=== PATIENT | female | born 1980 | race Caucasian/White ===

== ENCOUNTER → 2020-09-10 | Outpatient (CLI) | payer MEDICAID ==
[~2020-09-10] MED LIST: ACET160E38 PO; DIPH25CA83 PO; IBUP-2029 PO; METO-539 PO
== END | disposition home or self-care (01) ==
LOC: LAB 10:06
PROVIDERS: ATTEND Orthopaedic Surgery
DX: Z01.812 Encounter for preprocedural laboratory examination (principal); Z20.828 Contact with and (suspected) exposure to other viral communicable diseases; M24.662 Ankylosis, left knee
CPT/HCPCS: 87426

== ENCOUNTER 2020-09-12 05:15 | Day surgery (SDC) | payer MEDICAID ==
[~2020-09-12] VITALS: Ht 162.6 cm; Wt 77.1 kg
[~2020-09-12 05:15] MED LIST changes: -ACET160E38 PO; -DIPH25CA83 PO
[2020-09-12 06:41] LABS: CLARITY URINE CLEAR (CLEAR); COLOR URINE YELLOW (YELLOW); KETONES URINE NEGATIVE (NEGATIVE); LEUKOCYTE ESTERASE URINE NEGATIVE (NEGATIVE); NITRITE URINE NEGATIVE (NEGATIVE); OCCULT BLOOD URINE NEGATIVE (NEGATIVE); PROTEIN URINE NEGATIVE (NEGATIVE); SPECIFIC GRAVITY URINE 1.026 (1.005-1.030); UROBILINOGEN URINE 0.2 E.U./dL (0.2-1.0)
[2020-09-12] MEDS ORDERED: DIPH25CA83 PO (06:43)
[2020-09-12] MEDS ORDERED: ACET160E38 PO (06:43)
[2020-09-12 06:44] LABS: UCG SCREEN NEGATIVE
[2020-09-12] MEDS ORDERED: LACTATED RINGERS 1,000 ML IV SCH (07:00)
[2020-09-12] MEDS ORDERED: MORPHINE SULFATE/PF 1MG/ML 10ML AMP ONE (07:10)
[2020-09-12] MEDS ORDERED: SKIN ADHESIVE 0.7 GM EA TOP ONE (07:10)
[2020-09-12] MEDS ORDERED: LIDOCAINE HCL/EPINEPHRINE 1%-EPI 1:100,000 20 ML VIAL ONE ×2 (07:10→09:06)
[2020-09-12] MEDS ORDERED: EPINEPHRINE 1:1000 1 MG/ML AMP ONE (07:10)
[2020-09-12] MEDS ORDERED: MORPHINE SULFATE 2 MG/ML CPJ (NOT FOR IM USE) IV PRN (07:30)
[2020-09-12] MEDS ORDERED: SODIUM CHLORIDE 0.9% 1,000 ML IV ONE (07:30)
[2020-09-12] MEDS ORDERED: HYDROMORPHONE HCL/PF 2MG/ML CPJ IV PRN (07:30)
[2020-09-12] MEDS ORDERED: MEPERIDINE HCL/PF 25MG/ML CPJ IV PRN ×2 (07:30)
[2020-09-12] MEDS ORDERED: HYDROCODONE/ACETAMINOPHEN 10/325MG TABLET PO PRN (07:45)
[2020-09-12] MEDS ORDERED: ROPIVACAINE HCL 10MG/ML 20 ML VIAL EPI ONE (07:50)
[2020-09-12] MEDS ORDERED: SUCCINYLCHOLINE CHLORIDE 200MG/10ML IV ONE (07:54)
[2020-09-12] MEDS ORDERED: FENTANYL CITRATE/PF 50MCG/ML 2ML VIAL ONE (07:54)
[2020-09-12] MEDS ORDERED: MIDAZOLAM HCL 2 MG/2 ML VIAL ONE (07:54)
[2020-09-12] MEDS ORDERED: GLYCOPYRROLATE 0.2 MG/ML 2ML VIAL ONE (07:54)
[2020-09-12] MEDS ORDERED: PROPOFOL 200MG/20ML VIAL IV ONE (07:54)
[2020-09-12] MEDS ORDERED: ONDANSETRON HCL 4MG/2ML INJ ONE (07:55)
[2020-09-12] MEDS ORDERED: METOCLOPRAMIDE HCL 10MG/2ML VIAL ONE (07:55)
[2020-09-12] MEDS ORDERED: LIDOCAINE HCL 1% 20ML VIAL (Pyxis) INJ ONE (09:07)
[2020-09-12] MEDS: ONDANSETRON HCL 4MG/2ML INJ IV PRN ×2 (10:07→11:55)
== END 2020-09-12 12:30 | disposition home or self-care (01) ==
LOC: OR 05:15
PROVIDERS: ATTEND Orthopaedic Surgery
DX: M94.262 Chondromalacia, left knee (principal); M24.662 Ankylosis, left knee; M65.88 Other synovitis and tenosynovitis, other site; I10 Essential (primary) hypertension; Z79.899 Other long term (current) drug therapy; Z98.890 Other specified postprocedural states
CPT/HCPCS: 27570; 29877; 64447; 81003; 81025; 88305; 88311; 97116; 97162; J0330; J2250; J2274; J2405; J2704; J2765; J2795; J3010; J3490